=== PATIENT | female | born 1960 | race Asian ===

== ENCOUNTER 2023-10-08 08:59 | Day surgery (SDC) | payer OTHER ==
[2023-10-05 10:44] LABS: EOSINOPHILS # (AUTO) 0.1 K/uL (0.0-0.4); EOSINOPHILS % (AUTO) 1.4 % (0.0-4.0); HEMATOCRIT 39.8 % (36-48); HEMOGLOBIN 13.1 g/dL (12.0-16.0); LYMPHOCYTES # (AUTO) 1.8 K/uL (1.0-5.5); LYMPHOCYTES % (AUTO) 41.1 % (20.5-51.5); MEAN CORPUSCULAR HEMOGLOBIN 30 pg (27-31); MEAN CORPUSCULAR HGB CONC 33 % (32-36); MEAN CORPUSCULAR VOLUME 91 fL (79.0-98.0); MONOCYTES # (AUTO) 0.3 K/uL (0.0-1.0); MONOCYTES % (AUTO) 6.1 % (1.7-9.3); NEUTROPHILS # (AUTO) 2.2 K/uL (1.8-7.7); NEUTROPHILS % (AUTO) 50.4 % (40.0-70.0); PLATELET COUNT (AUTO) 257 K/uL (130-430); RED BLOOD CELL COUNT(AUTO) 4.39 MIL/uL (4.2-6.2); RED CELL DISTRIBUTION WIDTH 13.3 % (9.0-15.0); WHITE BLOOD COUNT (AUTO) 4.3 K/uL (4.8-10.8)
[2023-10-05 10:59] LABS: ALBUMIN 4.1 g/dL (3.4-4.8); CALCIUM 9.5 mg/dL (8.4-11.0); CREATININE 0.85 mg/dL (0.55-1.30); TOTAL BILIRUBIN 0.6 mg/dL (0.0-1.0); TOTAL PROTEIN, SERUM 8.1 g/dL (6.4-8.3)
[~2023-10-08] VITALS: Ht 149.9 cm; Wt 55.3 kg
[~2023-10-08 08:59] MED LIST: ceFAZolin SODIUM 1 GM in D5W 100 ML IV ONE
[2023-10-08 11:35] VITALS: O2SAT 100
[2023-10-08] MEDS ORDERED: NS 1000 ML IV.SOLN IV ONE (12:44)
[2023-10-08] MEDS ORDERED: LR 1,000 ML IV.SOLN IV ONE (12:44)
[2023-10-08] MEDS ORDERED: KETOROLAC TROMETHAMINE 30 MG VIAL ONE (12:44)
[2023-10-08] MEDS ORDERED: PROPOFOL 200MG/ 20ML VIAL (DIPRIVAN) IV ONE (12:44)
[2023-10-08] MEDS ORDERED: SEVOFLURANE 15 MIN GAS INH ONE (12:44)
[2023-10-08] MEDS ORDERED: NS IRRIG SOLN 1000 ML IR ONE (12:44)
[2023-10-08] MEDS ORDERED: ISOSULFAN BLUE 5 ML VIAL (LYMPHAZURIN) ONE (12:44)
[2023-10-08] MEDS ORDERED: fentaNYL CITRATE/PF 100 MCG/2 ML AMP ONE (12:44)
[2023-10-08] MEDS ORDERED: ONDANSETRON HCL 4 MG/2 ML VIAL ONE (12:44)
[2023-10-08] MEDS ORDERED: ONDANSETRON HCL 4 MG/2 ML VIAL IVP PRN (15:00)
[2023-10-08] MEDS ORDERED: HYDROmorphone 1 MG/ML INJ. CARTRIDGE IVP PRN (15:00)
[2023-10-08] MEDS ORDERED: METOCLOPRAMIDE HCL 10 MG/2 ML VIAL IVP PRN (15:00)
[2023-10-08] MEDS ORDERED: ACETAMINOPHEN I.V. 1000 MG 100 ML IV ONE ×2 (15:00→15:04)
[2023-10-08] MEDS ORDERED: hydrALAZINE HCL 20 MG/ML VIAL IVP PRN (15:00)
[2023-10-08] MEDS ORDERED: hydrALAZINE HCL 20 MG/ML VIAL ONE (15:04)
[2023-10-08] MEDS ORDERED: HYDROmorphone 1 MG/ML INJ. CARTRIDGE ONE ×2 (15:31→16:43)
[2023-10-08 18:27] VITALS: BP_SYST 120; PULSE 80; RESP 16; TEMP 97
== END 2023-10-08 19:40 | disposition home or self-care (01) ==
LOC: SDS 08:59 → SMU 09:00 → SDS 19:40
PROVIDERS: ATTEND Surgery
DX: C50.911 Malignant neoplasm of unspecified site of right female breast (principal); I10 Essential (primary) hypertension; E11.9 Type 2 diabetes mellitus without complications; E78.5 Hyperlipidemia, unspecified; Z91.040 Latex allergy status; Z79.899 Other long term (current) drug therapy
CPT/HCPCS: 80053; 85025; 87081; 36415; 93005; 71046; 82378; 19303; 38500; 82962; 78195; 88305; 88307; A9541; J0690; J0360; J1885; J2405; J2704; J3010; J1170; Q9968; J7060; J7120; J7030; J0131